=== PATIENT | male | born 2005 | race Caucasian/White ===

== ENCOUNTER 2024-04-05 22:45 | Emergency (ER) | payer SELFPAY ==
[~2024-04-05] VITALS: Ht 190.5 cm; Wt 107.7 kg
[2024-04-05 22:47] VITALS: BP 143/71; TEMP 97; O2SAT 99
== END 2024-04-05 23:58 | disposition left against medical advice (07) ==
LOC: M ED 22:45
DX: Z53.21 Procedure and treatment not carried out due to patient leaving prior to being seen by health care provider (principal)